=== PATIENT | female | born 1970 | race Caucasian/White ===

== ENCOUNTER 2025-01-24 22:08 | Outpatient (REF) | payer MEDICAID, SELFPAY ==
[2025-01-24 21:10] LABS: Abs Immature Grans 0.03 10^3/uL (0.0-0.06); HCT 41.5 % (36.0-46.0); HGB 13.9 g/dL (11.2-15.7); Immature Grans % 0.3 %; MCH 30.2 pg (27.0-33.0); MCHC 33.5 % (32.0-36.0); MCV 90 fL (80-95); MPV 11.5 fL (8.0-11.0); Platelet Count 235 10^3/uL (130-400); RBC 4.60 10^6/uL (3.93-5.22); RDW 12.6 % (11.7-14.6); RDW-SD 41.4 fL; WBC 10.52 10^3/uL (4.4-10.8)
[2025-01-24 21:23] LABS: ALT 20 U/L (14-59); AST 15 U/L (15-37); Albumin 4.2 g/dL (3.4-5.0); Alkaline Phosphatase 78 U/L (46-116); Anion Gap 7.9 mmol/L (3-11); BUN 9 mg/dL (7-18); Bilirubin, Total 0.5 mg/dL (0.2-1.0); CO2 31.1 mmol/L (21.0-32.0); Calcium 10.1 mg/dL (8.5-10.1); Chloride 102 mmol/L (98-107); Estimated GFR 102.71 (mL/min/1.73m2); Glucose 99 mg/dL (74-106); Potassium 4.3 mmol/L (3.5-5.1); Sodium 141 mmol/L (136-145); Total Protein 7.2 g/dL (6.4-8.2)
== END 2025-01-24 22:09 | disposition home or self-care (01) ==
LOC: NCHCN 22:08
PROVIDERS: Visit Provider Nurse Practitioner Family
DX: R19.7 Diarrhea, unspecified (principal)
CPT/HCPCS: 80053; 85025

== ENCOUNTER 2025-01-27 15:53 | Outpatient (REF) | payer MEDICAID, SELFPAY ==
[2025-01-28 12:19] LABS: Campylobacter PCR Negative (Negative); Shiga Toxin PCR Negative (Negative); Shigella/Enteroinvasive Ecoli Negative (Negative)
== END 2025-01-27 15:54 | disposition home or self-care (01) ==
LOC: LBN 15:53
PROVIDERS: Visit Provider Nurse Practitioner Family
DX: R19.7 Diarrhea, unspecified (principal)
CPT/HCPCS: 87505

== ENCOUNTER 2025-03-23 12:36 | Emergency (ER) | payer MEDICAID, SELFPAY ==
[2025-03-23 12:47] VITALS: BP 125/90; PULSE 98; RESP 16; TEMP 37.1; O2SAT 97
--- NOTE | 2025-03-23 13:00 | W.ED.GENAD ---
Discharge Plan Disposition Patient Disposition: Home Condition: Stable Discharge Details Clinical Impression: Diarrhea Primary Care Provider: Unknown,Unknown ED Provider: Ant Abarca Home Meds and New Rx's Prescriptions: New fidaxomicin 200 mg tablet 200 mg PO BID 10 Days Qty: 20 0RF Continued loperamide [Imodium A-D] 2 mg capsule 2 mg PO Q6H PRN methylphenidate HCl [Concerta] 36 mg tablet extended release 24hr 36 mg PO DAILY mecobalamin (vitamin B12) 1,000 mcg tablet,chewable 1,000 mcg PO DAILY fluoxetine 40 mg capsule 40 mg PO DAILY ascorbic acid (vitamin C) [C-1000] 1,000 mg tablet 1 g PO DAILY cholecalciferol (vitamin D3) [D3 DOTS] 50 mcg (2,000 unit) tablet 50 mcg PO DAILY clonazepam [Klonopin] 0.5 mg tablet 0.5 mg PO QHS PRN Rx Instructions: administer 30 minutes before bedtime Discharge Instructions Instructions: Diarrhea, Adult ED Additional Instructions: You were seen in the emergency department for your diarrhea, we are running your C. difficile test I will call you if the result is positive and send antibiotics to your pharmacy. Otherwise your blood work showed no major electrolyte abnormalities or severe dehydration, showed no elevation of white blood cells, indicating that your level of diarrhea is not endangering him at this time, please continue Imodium if you develop chronic diarrhea you may need to see a choker hooker you should discuss this with your primary care provider, please return for any emergent concerns Stand Alone Forms: Portal Information Discharge Data Discharge Date/Time-TO BE ENTERED AT DEPARTURE: 03/23/25 15:43 HPI General Date/Time Provider Initiated Documentation: 03/23/25 13:00. HPI Narrative: 54 year-old female presents to ED today by POV/ambulating with a chief complaint of diarrhea, many times per day mostly at night- after having C. difficile and two rounds of treatment without improvement. Had C. difficile after being on antibiotics for UTI with onset in January- reports basically having this diarrhea for nearly 2 months at this point. Quality described as generalized abdominal discomfort, small amounts of liquid diarrhea with occasional bloody spots, no radiation to chest pain, shortness of breath, vomiting, severe abdominal pain, gross hematochezia. Severity is described as moderate. Palliating factors include nothing specific. Provoking factors include nothing specific. Patient not anticoagulated. Related Data Home Medications Medication Instructions Recorded Confirmed ascorbic acid (vitamin C) 1,000 mg 1 g PO DAILY 03/23/25 03/23/25 tablet (C-1000) cholecalciferol (vitamin D3) 50 50 mcg PO DAILY 03/23/25 03/23/25 mcg (2,000 unit) tablet (D3 DOTS) clonazepam 0.5 mg tablet (Klonopin) 0.5 mg PO QHS PRN 03/23/25 03/23/25 fidaxomicin 200 mg tablet 200 mg PO BID 10 days #20 tabs 03/23/25 fluoxetine 40 mg capsule 40 mg PO DAILY 03/23/25 03/23/25 loperamide 2 mg capsule (Imodium 2 mg PO Q6H PRN 03/23/25 03/23/25 A-D) mecobalamin (vitamin B12) 1,000 1,000 mcg PO DAILY 03/23/25 03/23/25 mcg chewable tablet methylphenidate HCl 36 mg 36 mg PO DAILY 03/23/25 03/23/25 tablet,extended release 24 hr (Concerta) Previous Rx's Medication Instructions Recorded fidaxomicin 200 mg tablet 200 mg PO BID 10 days #20 tabs 03/23/25 Allergies Allergy/AdvReac Type Severity Reaction Status Date / Time No Known Allergies Allergy Unverified 03/23/25 12:50 General Stated Complaint: Nausea/Vomit/Diar CHEPE: 3 Review of Systems All systems reviewed & are unremarkable except as noted in HPI and below Exam Narrative Exam Narrative: GENERAL APPEARANCE: Well-nourished, non-toxic, awake and alert, atraumatic, no acute distress. SKIN: Warm, pink, dry, intact, without rashes/lesions/ulcerations. HEAD: Normocephalic, atraumatic, normal hair distribution for gender/age. EYES: Normal conjunctiva, no exudates on lids/lashes. ENT: Nares patent, no circumoral cyanosis, no facial swelling NECK: Supple, trachea midline, painless cervical ROM. LUNGS/CHEST: Lungs CTA bilaterally-no rhonchi/rales/wheeze diffusely, non-labored respirations, normal A/P diameter, symmetrical expansion, no chest wall deformity HEART (CV/PV): Regular rate and rhythm without murmur, no peripheral edema, no JVD. ABDOMEN: Soft, non-distended, no guarding, mild discomfort but no focal tenderness. MSK: Normal ROM, no swelling/deformity to bilateral UEs or LEs, moving all extremities without weakness, no cyanosis, spine midline without tenderness, normal curvature. NEURO: Mental Status AAOx4 - alert to person, place, time, events No facial droop, no forehead involvement. Motor: No focal weakness - strength 5/5 in bilateral UEs and LEs, proximal and distal, symmetric. Sensory: sensation intact to light touch globally. Gait normal: patient ambulated without ataxia into ED room. PSYCH: euthymic, cooperative, pleasant, appropriate speech Course Vital Signs Vital signs: Vital Signs Temperature 37.1 C 03/23/25 12:47 Pulse 98 H 03/23/25 12:47 Respiratory Rate 16 03/23/25 12:47 Blood Pressure 125/90 03/23/25 12:47 Pulse Oximetry 97 03/23/25 12:47 Temperature 37.1 C 03/23/25 12:47 Temperature Source Temporal Artery Scan 03/23/25 12:47 Pulse 98 H 03/23/25 12:47 Respiratory Rate 16 03/23/25 12:47 Blood Pressure 125/90 03/23/25 12:47 Blood Pressure Position Sitting 03/23/25 12:47 Pulse Oximetry 97 03/23/25 12:47 Oxygen Delivery Method Room Air 03/23/25 12:47 Oxygen Flow Rate 0 03/23/25 12:47 Pain Level 0 03/23/25 12:47 Medical Decision Making This dictation utilizes [id number] dictation software and may contain unedited grammatical errors. 54 year-old female presents to ED today by POV/ambulating with a chief complaint of diarrhea, many times per day mostly at night- after having C. difficile and two rounds of treatment without improvement. Had C. difficile after being on antibiotics for UTI with onset in January- reports basically having this diarrhea for nearly 2 months at this point. Quality described as generalized abdominal discomfort, small amounts of liquid diarrhea with occasional bloody spots, no radiation to chest pain, shortness of breath, vomiting, severe abdominal pain, gross hematochezia. Severity is described as moderate. Palliating factors include Imodium without relief. Provoking factors include nothing specific. Patients' medical history: C. difficile. Family and social history: Noncontributory. Pertinent exam findings / vital signs include benign abdomen, no focal tenderness, no rebound tenderness, stable vitals nontoxic and afebrile, benign cardiopulmonary status. Differential / pathologies of concern include enteritis/colitis/C. difficile. Diagnostic studies of: - CBC, CMP, CRP, ESR, magnesium, C. difficile PCR. - CBC shows no leukocytosis - CMP without actionable abnormality no major dehydration or hypokalemia - Magnesium within normal limits - CRP negative - ESR normal - C. difficile pending at discharge Interventions of: -1L IVF NS. C. diff resulted positive after d/c - sent Rx of fidaxomicin, informed patient by phone @ [phone]. ED Course/Assessment/Plan: 54-year-old female presents with intermittent diarrhea for multiple months after treatment with antibiotic for UTI where she acquired C. difficile colitis after this treatment, she is attempted treatment twice with p.o. vancomycin, currently her insurance is not covering the first-line antibiotic and is quite expensive, she appears well and has no major electrolyte abnormalities and has Imodium at home, requesting discharge prior to her C. difficile test results which is reasonable given her stability - [ ]. Findings not consistent with electrolyte derangement, intractable nausea or vomiting, severe dehydration. Disposition of Colitis. Patient verbalized understanding of the plan and return to ED criteria and engaged in shared decision making. Medical Records Medical records reviewed: Yes I reviewed the patient's medical records. Lab Data Lab results reviewed: Yes I reviewed the patient's lab results. Labs: Laboratory Tests Range/Units 03/23/25 03/23/25 13:28 15:00 WBC (4.4-10.8) 10^3/uL 8.61 RBC (3.93-5.22) 10^6/uL 4.91 Hgb (11.2-15.7) g/dL 14.1 Hct (36.0-46.0) % 43.4 MCV (80-95) fL 88 MCH (27.0-33.0) pg 28.7 MCHC (32.0-36.0) % 32.5 RDW (11.7-14.6) % 12.3 Plt Count (130-400) 10^3/uL 273 MPV (8.0-11.0) fL 10.5 Immature Gran % % 0.1 Neutrophils % % 76.6 Lymphocytes % % 15.8 Monocytes % % 5.9 Eosinophils % % 1.0 Basophils % % 0.6 Nucleated RBC % (0.0-0.3) % 0.0 Absolute Neutrophils (1.2-6.7) 10^3/uL 6.59 Absolute Lymphocytes (1.2-3.4) 10^3/uL 1.36 Absolute Monocytes (0.1-0.8) 10^3/uL 0.51 Absolute Eosinophils (0.0-0.7) 10^3/uL 0.09 Absolute Basophils (0.0-0.2) 10^3/uL 0.05 ESR (0-30) mm/hr 20 Sodium (136-145) mmol/L 142 Potassium (3.5-5.1) mmol/L 3.8 Chloride (98-107) mmol/L 104 Carbon Dioxide (20.0-31.0) mmol/L 30.8 Anion Gap (3-11) mmol/L 7.2 BUN (9-23) mg/dL 11 Creatinine (0.55-1.02) mg/dL 0.7 Est GFR (CKD-EPI 2020) (mL/min/1.73m2) 85.62 Glucose (74-106) mg/dL 84 Calcium (8.3-10.6) mg/dL 10.3 Magnesium (1.6-2.6) mg/dL 1.6 Total Bilirubin (0.2-1.2) mg/dL 0.50 AST (<34) U/L 17 ALT (10-49) U/L 14 Alkaline Phosphatase (46-116) U/L 82 C-Reactive Protein (<=0.50) mg/dL < 0.50 Total Protein (5.7-8.2) g/dL 7.7 Albumin (3.4-5.0) g/dL 5.1 H Stl C.difficile Tox PCR (Negative) [facility] All Active Problems (Updated 03/23/25 @ 15:18 by TAMEKA Miramontes) Diarrhea (Acute) Social History Smoking/Tobacco Use Status: Never Smoking risk assessment performed?: Yes Alcohol Intake: never Substance use type: does not use Housing: house
[2025-03-23] MEDS: Normal Saline 1,000 ML 1000 ML IV (13:26)
[2025-03-23 13:39] LABS: Abs Immature Grans 0.01 10^3/uL (0.0-0.06); HCT 43.4 % (36.0-46.0); HGB 14.1 g/dL (11.2-15.7); Immature Grans % 0.1 %; MCH 28.7 pg (27.0-33.0); MCHC 32.5 % (32.0-36.0); MCV 88 fL (80-95); MPV 10.5 fL (8.0-11.0); Platelet Count 273 10^3/uL (130-400); RBC 4.91 10^6/uL (3.93-5.22); RDW 12.3 % (11.7-14.6); RDW-SD 39.5 fL; WBC 8.61 10^3/uL (4.4-10.8)
[2025-03-23 13:43] LABS: ESR 20 mm/hr (0-30)
[2025-03-23 13:59] LABS: Magnesium 1.6 mg/dL (1.6-2.6)
[2025-03-23 14:03] LABS: ALT 14 U/L (10-49); AST 17 U/L (<34); Albumin 5.1 g/dL (3.4-5.0); Alkaline Phosphatase 82 U/L (46-116); Anion Gap 7.2 mmol/L (3-11); BUN 11 mg/dL (9-23); Bilirubin, Total 0.50 mg/dL (0.2-1.2); CO2 30.8 mmol/L (20.0-31.0); Calcium 10.3 mg/dL (8.3-10.6); Chloride 104 mmol/L (98-107); Glucose 84 mg/dL (74-106); Potassium 3.8 mmol/L (3.5-5.1); Sodium 142 mmol/L (136-145); Total Protein 7.7 g/dL (5.7-8.2)
[2025-03-23 14:05] LABS: C-Reactive Protein < 0.50 mg/dL (<=0.50)
[2025-03-23 15:41] VITALS: BP 119/58; PULSE 82; RESP 16; TEMP 36.1; O2SAT 99
[2025-03-23 16:34] LABS: EPI 027-NAP1-B1 PRESUMPTIVE NEGATIVE
--- NOTE | 2025-03-24 14:45 | W.ED.FU ---
Date of service: 03/24/25 Time of Service: 14:45 Follow Up Plan: I called this patient at home and she was concerned about the cost of her prescription for fidaxomicin in the setting of her recurrent C. difficile infection. She had previously been on vancomycin. Subsequently she was placed on for fidaxomicin. Her insurance did not cover the recurrent prescription for her fidaxomicin. As a result I prescribed patient with alternate regime using 125 mg of oral vancomycin 4 times daily for 10 days followed by rifaximin mean 400 mg 3 times a day for 20 days. Patient I discussed that she is return for worsening pain fevers or inability tolerate p.o.
== END 2025-03-23 15:43 | disposition home or self-care (01) ==
PROVIDERS: Emergency Provider Physician Assistant
DX: R19.7 Diarrhea, unspecified (principal)
CPT/HCPCS: 80053; 85652; 96360; 99284; 83735; 85025; 86140; 99283